=== PATIENT | female | born 1930 | race Caucasian/White ===

== ENCOUNTER 2017-09-02 14:38 | Outpatient (CLI) | payer MEDICARE, OTHER ==
[2017-09-02 17:42] LABS: ALBUMIN 3.6 g/dL (3.2-5.5); ALBUMIN/GLOBULIN RATIO 0.9 (1.0-2.2); ALKALINE PHOSPHATASE 79 IU/L (42-121); ALT ALANINE AMINOTRANSFERASE 11 IU/L (10-60); AST ASPARTATE AMINOTRANSFERASE 13 IU/L (10-42); BILIRUBIN,TOTAL 0.3 mg/dL (0.2-1.0); BUN - BLOOD UREA NITROGEN 35 mg/dL (6-20); CALCIUM 9.5 mg/dL (8.5-10.3); CARBON DIOXIDE - CO2 25 mmol/L (21-32); CHLORIDE 106 mmol/L (101-111); CHOL/HDL RATIO 3.1 (<4.4); CHOLESTEROL 214 mg/dL; CREATININE 1.1 mg/dL (0.4-1.0); GFR - MDRD 47 (>89); GLUCOSE 82 mg/dL (70-100); HDL CHOLESTEROL 70 mg/dL; LDL CHOLESTEROL,CALCULATED 109 mg/dL; LDL/HDL RATIO 1.6 (<4.4); SODIUM 138 mmol/L (135-145); TOTAL PROTEIN 7.5 g/dL (6.7-8.2); VLDL CHOLESTEROL 35 mg/dL
== END 2017-09-02 14:39 | disposition home or self-care (01) ==
LOC: LAB.F 14:38
PROVIDERS: ATTEND Internal Medicine
DX: I10 Essential (primary) hypertension (principal); E78.5 Hyperlipidemia, unspecified; E03.9 Hypothyroidism, unspecified
CPT/HCPCS: 36415; 80053; 80061; 83721; 84443

== ENCOUNTER 2018-06-17 16:36 | Outpatient (CLI) | payer MEDICARE | END 2018-06-17 16:37 | disposition critical access hospital (66) | LOC: EMS 16:36 | PROVIDERS: ATTEND Surgery | DX: R63.8 Other symptoms and signs concerning food and fluid intake (principal) | CPT/HCPCS: A0425; A0429 ==

== ENCOUNTER 2018-06-17 17:12 | Emergency (ER) | payer MEDICARE ==
[2018-06-17] MEDS ORDERED: fentaNYL 12 MCG PATCH TOP STA (17:26)
[2018-06-17] MEDS ORDERED: DEXTROSE 50% ABBOJECT 25 GM/50 ML SYRINGE IVP STA (17:26)
[2018-06-17] MEDS ORDERED: ONDANSETRON 4 MG/2 ML VIAL IVP STA (17:26)
[2018-06-17] MEDS ORDERED: SODIUM CHLORIDE 0.9% 1,000 ML IV ONE (17:26)
[2018-06-17 17:28] VITALS: BP 144/90
--- NOTE | 2018-06-17 17:45 | ED Physician Documentation ---
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 She is going on hospice tomorrow. She does not want any aggressive treatment. She is requesting something for pain as well as IV fluids that she cannot eat or drink secondary to the tumor. Nothing makes it better or worse. Review of Systems Constitutional: denies: Fever, Chills GI: reports: Vomiting Skin: denies: Rash Musculoskeletal: denies: Neck pain, Back pain Neurologic: denies: Headache PD PAST MEDICAL HISTORY - Past Medical History Past Medical History: Yes - Past Surgical History Past Surgical History: Yes - Present Medications Home Medications: Ambulatory Orders Medication Instructions Recorded Confirmed Ondansetron Odt [Zofran] 4 mg TL Q6H PRN #10 tablet 06/17/18 - Allergies Allergies/Adverse Reactions: Allergies Allergy/AdvReac Type Severity Reaction Status Date / Time No Known Drug Allergies Allergy Verified 06/17/18 17:19 - Social History Does the pt smoke?: No Smoking Status: Never smoker Does the pt drink ETOH?: No Does the pt have substance abuse?: No - Immunizations Immunizations are current?: Yes - POLST Patient has POLST: Yes PD ED PE NORMAL - Vitals Vital signs reviewed: Yes - General General: Alert and oriented X 3, No acute distress - HEENT HEENT: Other (dry lips and tongue) - Neck Neck: Supple, no meningeal sign - Cardiac Cardiac: RRR, Strong equal pulses - Respiratory Respiratory: No respiratory distress, Clear bilaterally - Abdomen Abdomen: Soft, Non tender, Non distended - Derm Derm: Warm and dry - Neuro Neuro: Alert and oriented X 3 Results - Vitals Vitals: Vital Signs - 24 hr 06/17/18 06/17/18 06/17/18 17:19 17:27 17:57 Temperature 36.6 C 36.6 C Heart Rate 80 80 Respiratory 16 16 Rate Blood Pressure 144/90 H 144/90 H O2 Saturation 86 L 86 L 96 Oxygen O2 Source Nasal cannula Oxygen Flow Rate 4 PD MEDICAL DECISION MAKING - ED course Complexity details: re-evaluated patient, considered differential, d/w patient, d/w family ED course: 87-year-old female with an inoperable esophageal tumor who is going on hospice. A fentanyl patch was applied as well as Zofran given. Pain well controlled and nausea improved. Also given IV fluids. She does not want any blood work or any further testing or care at this time. Discussed at length with patient, caregiver and family. Patient and family counseled regarding signs and symptoms for which I believe and urgent re-evaluation would be necessary. Patient with good understanding of and agreement to plan and is comfortable going home at this time This document was made in part using voice recognition software. While efforts are made to proofread this document, sound alike and grammatical errors may occur. Departure - Departure Disposition: Home, Self Care Clinical Impression: Dehydration Condition: Stable Instructions: Hospice Nears Follow-Up: Chriss Mendoza MD [Primary Care Provider] - Within 1 week Prescriptions: Ondansetron Odt [Zofran] 4 mg TL Q6H PRN #10 tablet PRN Reason: Nausea / Vomiting Comments: Follow-up with hospice tomorrow as scheduled. Return if you worsen. Remove the pain patch that was placed today on Wednesday night Discharge Date/Time: 06/17/18 18:49
== END 2018-06-17 18:49 | disposition home or self-care (01) ==
LOC: EDUNIT# → ED 17:12
DX: E86.0 Dehydration (principal); D49.0 Neoplasm of unspecified behavior of digestive system
CPT/HCPCS: 96361; 96374; 96375; 99283; A9270